=== PATIENT | male | born 1965 | race Caucasian/White ===

== ENCOUNTER 2025-07-09 15:21 | Outpatient (AMB) | payer MEDICARE, MEDICAID, SELFPAY ==
--- NOTE | 2025-07-09 15:25 | HO.NEPHOV_ITS ---
Vital Signs 07/09/25 15:26 Height 5 ft 9 in Weight 192 lb BMI 28.4 BP 84/60 L Blood Pressure Location Lt brachial Position Sitting Pulse 66 Pulse Source Pulse Oximeter Pulse Oximetry (%) 98 Oxygen Delivery Method Room Air Intake Visit Reasons: Increasing Creatinine-LVM Water Treatment Operator Required: No Accompanied by: Son Allergies amiodarone Allergy (Verified 07/09/25 15:29) Swelling amitriptyline Allergy (Verified 07/09/25 15:29) Swelling gabapentin Allergy (Verified 07/09/25 15:29) Confusion Penicillins Allergy (Verified 07/09/25 15:29) Seizure HPI Comments Details: I had the privilege of seeing Jayme in consultation for CKD and hypertension. He has longstanding diabetes mellitus with proteinuria, coronary artery disease, retinopathy with history of heart failure with reduced ejection fraction. He is hypertensive and has dyslipidemia. His blood pressure is well controlled on current medication regimen. He is on Farxiga as well as Entresto and spironolactone. He also has sarcoidosis and is on mycophenolate. His hemoglobin A1c has been around 7.3. His serum creatinine recently had gone up to 1.5 which has settled down close to baseline. He denies nausea, vomiting, diarrhea, shortness of breath, paroxysmal nocturnal dyspnea, orthopnea, pedal edema or orthostatic symptoms. He denied any excessive nonsteroidal anti- inflammatory medication intake. His recent serum creatinine has settled down to 1.04. PENDING SALE TO [facility] Medical History (Updated 07/11/25 @ 20:00 by Slim Root MD) Uveitis Tinea pedis of both feet Sarcoidosis Retinopathy due to secondary diabetes mellitus Prostatism Post herpetic neuralgia Pilonidal sinus with abscess Obstructive sleep apnea hypopnea, mild NSTEMI (non-ST elevated myocardial infarction) Microalbuminuria Hypertension HLD (hyperlipidemia) Hernia, ventral Heart failure with reduced ejection fraction Glaucoma Dysrhythmia, cardiac Dizziness Diabetes mellitus Chronic pain Cardiac pacemaker in situ CAD in [place] artery BPH (benign prostatic hyperplasia) Asthma Surgical History S/P laparoscopic cholecystectomy History of surgical removal of pilonidal cyst History of colonoscopy S/P evacuation of hematoma Review of Systems Const All systems reviewed & are unremarkable except as noted in HPI and below Physical Exam Vital Signs: Last Vital Signs Pulse 66 07/09/25 15:26 BP 84/60 L 07/09/25 15:26 Pulse Ox 98 07/09/25 15:26 Oxygen Delivery Method Room Air 07/09/25 15:26 BMI result Body Mass Index 28.4 Const General: comfortable and no acute distress Orientation/consciousness: patient oriented x3 HEENT Head: Yes normocephalic Mouth: Normal oral and palatal mucosa present Eyes EOM: EOMs intact bilaterally Neck Neck: Yes supple Resp Auscultation: clear to auscultation bilaterally Cardio Jugular venous distension: no JVD Rate: regular rate GI Palpation (GI): Soft to palpation Auscultation: normal bowel sounds General: Yes no CVA tenderness Back/Spine/Pelvis Back: no CVA tenderness Skin General skin exam: no rashes or lesions noted Neuro General: patient oriented x3 and moves all extremities Extrem General: Yes no pedal edema Assessment & Plan Assessment & Plan (1) CKD stage 3a, GFR 45-59 ml/min: Code(s): N18.31 - Chronic kidney disease, stage 3a Category: Medical (2) Hypertension: Code(s): I10 - Essential (primary) hypertension Category: Medical Qualifiers: Hypertension type: primary hypertension Qualified Code(s): I10 - Essential (primary) hypertension Plan Jayme has 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 He has coronary artery disease. He has not had a recent echocardiogram. His serum creatinine had gone up to 1.5 which has now settled down to 1.04. He most likely had hemodynamic OPAL with a tubular injury. He has history of retinopathy. He is on spironolactone, Entresto as well as Farxiga. His blood pressure is at goal. His hemoglobin A1c needs to be less than 7. He needs to maintain good hydration and avoid nonsteroidal anti-inflammatories. I have ordered further workup and shall continue to optimize his medications based on evolving data. Answered all questions and follow-up appointment was given. Orders: Orders Protein Creatinine Ratio, Ur 3 Weeks I10 - Essential (primary) hypertension Immunofixation, Random Urine 3 Weeks I10 - Essential (primary) hypertension Immunofixation Pnl, Serum 3 Weeks I10 - Essential (primary) hypertension Calcium 3 Weeks I10 - Essential (primary) hypertension Blood Urea Nitrogen 3 Weeks I10 - Essential (primary) hypertension Creatinine 3 Weeks I10 - Essential (primary) hypertension Electrolytes 3 Weeks I10 - Essential (primary) hypertension Coding Level of Care Code New Pt Level 4 (69650) Diagnoses CKD stage 3a, GFR 45-59 ml/min N18.31 Primary hypertension I10 Hypertension type: primary hypertension
[2025-07-09 15:26] VITALS: BP 84/60; PULSE 66; O2SAT 98; BMI 28.4
--- OUTSIDE RECORDS SUMMARY | 2025-07-09 18:46 | XMS_ITS | Clinical Summary ---
Author Organization [facility] Address [address] [place] [id number] Phone Care Team Providers Care Pinion And Wheel Truer Name Role Phone Pcp, Unknown Primary Care Provider Unavailabl e Allergies Active Allergy Reactions Criticality Noted Date Comments Penicillins Other (See Comments) 06/17/2007 seizures, many years ago Medications carvedilol (COREG) 3.125 MG tablet Take 3.125 mg by mouth daily. 2 Active baclofen (LIORESAL) 10 MG tablet Take 10 mg by mouth daily. 3 Active SACUBITRIL-VALSAR SHERWOOD 24-26 mg per tablet 3 Active pregabalin (LYRICA) 100 MG capsule Take 100 mg by mouth 2 (two) times a day. 3 Active atorvastatin (LIPITOR) 80 MG tablet Take 80 mg by mouth daily. 3 Active NOVOLOG FLEXPEN U-100 INSULIN 100 unit/mL (3 mL) flexpen 10 Units 3 (three) times a day. 2 Active LEVEMIR FLEXTOUCH U-100 INSULN 100 unit/mL (3 mL) InPn injection pen 50 Units nightly at bedtime. 2 Active TRULICITY 1.5 mg/0.5 mL subcutaneous injection every 7 days. 3 Active OXYCONTIN 20 mg 12 hr tablet Take 20 mg by mouth 2 (two) times a day. 3 Active aspirin 81 MG EC tablet Take 81 mg by mouth daily. Active cholecalciferol (VITAMIN D3) 25 MCG (1,000 unit) tablet Take 1,000 Units by mouth daily. Active Active Problems Problem Noted Date Diagnosed Date Hyperlipidemia 08/13/2022 Uveitis 08/13/2022 Asthma 08/13/2022 BPH (benign prostatic hyperplasia) 08/13/2022 Chronic pain 08/13/2022 Sarcoid 09/23/2007 Overview (08/30/2014): sarcoid Type 2 diabetes mellitus 09/23/2007 Overview (08/30/2014): Diabetes mellitus type 2 Social History Tobacco Use Types Packs/Day Years Used Date Smoking Tobacco: Never Smokeless Tobacco: Never Tobacco Cessation:Counseling Given: Not Answered Education Answer Date Recorded Are you interested in more education? Not on bennett e 11/04/2022 Are you concerned about learning? Not on file 11/04/2022 No 11/04/2022 No 11/04/2022 Digital Access Answer Date Recorded No 12/06/2022 No 12/06/2022 No 12/06/2022 Reliable internet access at home? Not on file 12/06/2022 Device with a working camera? Not on file Sex and Gender Information Value Date Recorded Sex Assigned at Male 08/03/2022 9:09 AM EST Legal Sex Male 7:43 PM EST Gender Identity Male 08/03/2022 9:09 AM EST Sexual Orientation Straight 08/03/2022 9: 09 AM EST Last Filed Vital Signs Vital Sign Reading Time Taken Comments Blood Pressure 100/62 08/13/2022 3:06 PM EST Pulse 92 08/13/2022 3:06 PM EST Temperature - - Respiratory Rate - - Oxygen Saturation 96% 08/13/2022 3:06 PM EST Inhaled Oxygen Concentration - - Weight 100.2 kg (220 lb 12.8 oz) 08/13/2022 3:06 PM EST Height - - Body Mass Index - - Plan of Treatment Health Maintenance Due Date Last Done Comments DEPRESSION SCREENING 1977 HEPATITIS C SCREENING 09/22/1983 HIV ONE-TIME SCREENING (18-65 YEARS) 09/22/1983 COLOGUARD 2010 COLONOSCOPY 2010 COLORECTAL CANCER SCREENING 2010 FIT TEST 2010 FOBT 2010 SIGMOIDOSCOPY 2010 VIRTUAL COLONOSCOPY 2010 DIABETIC EYE EXAM 08/30/2014 PNEUMOCOCCAL VACCINES (50+ years) (2 of 2 - PCV) 09/24/2014 09/24/2013, 05/25/2007 RSV VACCINE (1 - Risk 50-74 years 1-dose series) 09/22/2015 HEMOGLOBIN A1C 11/10/2022 08/13/2022 BLOOD PRESSURE 02/10/2023 08/13/2022 INFLUENZA VACCINE (#1) 2025 2, 05/19/2021, 04/14/2020, Additional history exists COVID-19 VACCINE (2024- season) 2025 05/14/2022, 07/24/2021, 10/16/2020, Additional history exists Adult Td,Tdap Booster 10/04/2027 10/03/2017 ZOSTER VACCINES Completed 12/15/2021, 08/27/2021 SMOKING STATUS SCREENING (Once After 26 Yrs) Completed 08/13/2022 HEPATITIS A VACCINES Aged Out No long er eligible based on patient's age to complete this topic HIB VACCINES Aged Out No longer eligi ble based on patient's age to complete this topic MENINGOCOCCAL VACCINES (ACWY) Aged Out No longer eligible based on patient's age to complete this topic MENINGOCOCCAL VACCINES (B) Aged Out N o longer eligible based on patient's age to complete this topic Medical Devices Not on file Procedures Procedure Name Priority Date/Time Associated Diagnosis Comments HEMOGLOBIN A1C Routine 08/13/2022 3:49 PM EST Sarcoid Diabetes mellitus due to underlying condition with other diabetic kidney complication from Last 3 Months or Most Recently Relevant to Health Maintenance Results * (ABNORMAL) Hemoglobin A1c (08/13/2022 3:49 PM EST) HEMOGLOBIN A1C 8.6(H) 4.2 - 5.6 % [facility] Comment: HbA1c levels 5.7-6.4% represent pre-diabetes, indicating impaired glucose control and an increased risk of developing diabetes. The diagnostic HbA1c level for diabetes is 6.5% or greater. HbA1c is performed by the Brett Suellen-quant immunoassay method which does not detect (incidental) hemoglobin variants. Hemoglobin electrophoresis should be ordered in patients with suspected hemoglobinopathies. CALC MEAN BLD GLUC 200 mg/dL [facility] Comment: The Calculated Mean Blood Glucose (CMBG) represents the estimated average glucose calculated from the measured hemoglobin A1c (HbA1c). There is no established normal range for the CMBG, however a 5.6% HbA1c (upper limit of normal) represents a CMBG of 114 mg/dL. 08/13/2022 3:49 PM EST 08/13/2022 6:14 PM EST us Naif Souza MD LAB BLOOD BKR ORDERABLES Fi nal Result [facility] [address] [place] [id number] from Last 3 Months or Most Recently Relevant to Health Maintenance Insurance MEDICARE PART A & B [facility] MEDICARE PART A & B [place] & B [id number] [place], [place] [address]HEALTH MEDICARE PART A & [place] B [place] MEDICARE PART A & [place] [address] [place] [phone] [facility] [place] [phone] [facility] & [facility] Care Teams Pinion And Wheel Truer Relationship Specialty Start Date End Date Pcp, Unknown PCP - General 01/08/14 Additional Source Comments The information contained in this document represents components of the legal health record. It is not the complete legal health record.[facility]
== END 2025-07-09 16:08 | disposition home or self-care (01) ==
LOC: HO.HKAS 15:21
PROVIDERS: PCP Physician Assistant Medical; Visit Provider Internal Medicine Nephrology
DX: N18.31 Chronic kidney disease, stage 3a (principal); I10 Essential (primary) hypertension
CPT/HCPCS: 99204

== ENCOUNTER → 2025-07-09 15:21 | Outpatient (BNVA) | payer MEDICARE, MEDICAID, SELFPAY | PROVIDERS: PCP Physician Assistant Medical; Visit Provider Internal Medicine Nephrology | DX: E11.22 Type 2 diabetes mellitus with diabetic chronic kidney disease (principal); I12.9 Hypertensive chronic kidney disease with stage 1 through stage 4 chronic kidney disease, or unspecified chronic kidney disease; N18.31 Chronic kidney disease, stage 3a | CPT/HCPCS: 99202 ==